=== PATIENT | female | born 1970 | race Caucasian/White ===

== ENCOUNTER 2017-05-11 10:01 | Emergency (ER) | payer OTHER ==
[~2017-05-11] VITALS: Ht 165.1 cm; Wt 100.0 kg
[~2017-05-11 10:01] MED LIST: CONTOUR NEXT EZ BLEZ XX; GLUCOMETER XX; GLUCOMTESTSTRIPS XX; LANTUS2P SC; MIREIUD IU; NRSS SQ; Z.0.INSULINSYR XX; Z.0.LANCETS XX
[2017-05-11 10:02] VITALS: BP 157/85; PULSE 69; RESP 16; TEMP 98.5; O2SAT 95
--- NOTE | 2017-05-11 13:17 | PD ---
HPI Chief Complaint: Injury Time Seen by Provider: 12:54 Travel History International Travel<30 days: No Contact w/Intl Traveler<30days: No Traveled to known affect area: No History of Present Illness HPI 46-year-old [place] female presents the emergency room with injury to the right pinky toe. Patient states he was running after 1-year-old yesterday when her toe hit a sneaker and she heard a "snap snap" with sudden onset pain. She now has bruising and swelling to the fifth toe the right foot. Pain is proximal 7 out of 10. With ambulation. She has no other injuries. No known drug allergies. PFSH Past Medical History Cardiovascular Problems: No Diabetes: Yes (new onset 05/21/16) Diminished Hearing: No Endocrine: Yes Genitourinary: No Immune Disorder: No Musculoskeletal: No Neurologic: No Psychiatric: No Reproductive: No Respiratory: No ?: Not : 7 Para: 5 Past Surgical History Abdominal Surgery: Yes (appy) Appendectomy: Yes Cardiac Surgery: No Section: No Endocrine Surgery: No Genitourinary Surgery: No Gynecologic Surgery: No Thoracic Surgery: No Social History Alcohol Use: No Tobacco Use: No Substance Use: No Allergies-Medications (Allergen,Severity, Reaction): Coded Allergies: No Known Allergies (Unverified , 05/11/17) Reported Meds & Prescriptions Reported Meds & Active Scripts Active Novolin Regular Insulin Supplemental Scale (Insulin Human Regular) U 100 Inj 1- 9 Units SQ TIDACHS Max dose at bedtime:( )units; sugars less than 70, (0)units; sugars 150-199, (1)unit; sugars 200-249, (3)units; sugars 250-299, (5)units; sugars 300-349, (7)units; sugars greater than 349, (9)units Lantus (Insulin Glargine) 100 Units/Ml Inj 10 Unit SC HS 30 Days Contour Next EZ Blood Glucose Meter (Device) Device 1 Unit XX DIRECTED Insulin Syringes 1 ml Box 100 (Syringes Insulin 1 ml Box 100) Box 1 Box XX Glucometer Test Strips (Glucomteststrips) Box 1 Box XX Lancets Box 1 Box XX Glucometer Kit 1 Kit XX Reported Mirena (Levonorgestrel (Iud)) Iud 1 IU Review of Systems Except as stated in HPI: all other systems reviewed are Neg General / Constitutional: No: Fever Eyes: No: Visual changes HENT: No: Headaches Cardiovascular: No: Chest Pain or Discomfort Respiratory: No: Shortness of Breath Gastrointestinal: No: Abdominal Pain Genitourinary: No: Dysuria Musculoskeletal: Positive: Arthralgias, Limited ROM, Pain Skin: No Rash Neurologic: No: Weakness Psychiatric: No: Depression Endocrine: No: Polydipsia Hematologic/Lymphatic: No: Easy Bruising Physical Exam Narrative GENERAL: Patient appears in mild distress. SKIN: Warm and dry. Normal color. Normal turgor. No open wounds or abrasions. Patient is obvious swelling and ecchymosis of the left pinky toe. Mild swelling of the distal lateral foot. HEAD: Atraumatic. Normocephalic. EYES: Pupils equal and round. No scleral icterus. No injection or drainage. ENT: No nasal bleeding or discharge. Mucous membranes pink and moist. NECK: Trachea midline. No JVD. CARDIOVASCULAR: Regular rate and rhythm. RESPIRATORY: No accessory muscle use. Clear to auscultation. Breath sounds equal bilaterally. GASTROINTESTINAL: Abdomen soft, non-tender, nondistended. Hepatic and splenic margins not palpable. MUSCULOSKELETAL: Extremities without clubbing, cyanosis, or edema. No obvious deformities. Patient has pain at the fifth right pinky toe. Range of motion is limited secondary to pain. There is no significant tenderness at the base of the fifth metatarsal rest of the foot and ankle are normal. NEUROLOGICAL: Awake and alert. No obvious cranial nerve deficits. Motor grossly within normal limits. Five out of 5 muscle strength in the arms and legs. Normal speech. PSYCHIATRIC: Appropriate mood and affect; insight and judgment normal. Data Data Last Documented VS Vital Signs Date Time Temp Pulse Resp B/P (MAP) Pulse Ox O2 Delivery O2 Flow Rate FiO2 05/11/17 10:02 98.5 69 16 157/85 (109) 95 Orders Orders Foot, Complete ([id number]) (05/11/17 12:13) Ice/Cold Pack (05/11/17 12:13) Splint Or Brace Apply/Monitor (05/11/17 13:20) [facility] Medical Decision Making Medical Screen Exam Complete: Yes Emergency Medical Condition: Yes Differential Diagnosis Right foot contusion. Right toe fracture. Right toe dislocation. Right foot fracture. Narrative Course X-ray of the right foot is ordered. Ice pack is applied. X-ray shows spiral nondisplaced fracture of the proximal fifth phalanx of the right foot. She is placed in a postop shoe. Patient is to use ice, ibuprofen, Tylenol, and follow-up when necessary. Work note is given to be allowed to use a stool. Diagnosis Primary Impression: Toe fracture, right Qualified Codes: S92.514A - Nondisplaced fracture of proximal phalanx of right lesser toe(s), initial encounter for closed fracture Referrals: Primary Care Physician Patient Instructions: General Instructions, Toe Fracture (ED) Departure Forms: Work Release Enter return to work date: May 11, 2017 Special Instructions: Patient should be allowed to use stool for the next several weeks she has a broken toe. Additional Instructions: X-ray shows spiral nondisplaced fracture of the proximal fifth phalanx of the right foot. She is placed in a postop shoe. Patient is to use ice, ibuprofen, Tylenol, and follow-up when necessary. Work note is given to be allowed to use a stool. Med/Other Pt SpecificInfo: No Meds Exist/No RX given Disposition: 01 DISCHARGE HOME Condition: Stable Javier Gamboa May 11, 2017 13:17
--- NOTE | 2017-05-11 13:42 | RADRPT ---
EXAM DATE/TIME: 05/11/2017 13:10 [facility] COMPARISON: No previous studies available for comparison. INDICATIONS : Right foot pain, kicked by child. MEDICAL HISTORY : None. SURGICAL HISTORY : None. ENCOUNTER: Initial ACUITY: 1 day PAIN SCORE: 10/10 LOCATION: Right lateral foot, fifth digit FINDINGS: Oblique fracture proximal phalanx fifth toe. No other fractures are appreciated. CONCLUSION: Oblique fracture proximal phalanx of fifth toe Miquel Martinez MD FACR on May 11, 2017 at 13:40 Board Certified Radiologist. This report was verified electronically.
== END 2017-05-11 13:43 | disposition home or self-care (01) ==
LOC: NEPK 10:01
DX: S92.514A Nondisplaced fracture of proximal phalanx of right lesser toe(s), initial encounter for closed fracture (principal); W22.8XXA Striking against or struck by other objects, initial encounter; Y93.02 Activity, running
CPT/HCPCS: 73630; 99283; L3260